=== PATIENT | male | born 1950 | race African-American/Black ===

== ENCOUNTER 2023-08-15 16:24 | Observation (INO) | payer MEDICARE, OTHER ==
[2023-08-15] MEDS ORDERED: ASPIRIN 81 MG PO STA (18:30)
--- NOTE | 2023-08-15 18:39 | ED ---
General Adult HPI - General Chief complaint: Recheck/Abnormal Lab/Rx Stated complaint: Hypertension Time Seen by Provider: 08/15/23 18:13 Source: patient Mode of arrival: ambulatory Limitations: no limitations - History of Present Illness Initial comments: Dictation was produced using [employer] dictation software. please excuse any grammatical, word or spelling errors. Chief Complaint: 73-year-old male presents to the emergency department for hypertension History of Present Illness: Patient 73-year-old male he denies any past medical history. States that [facility] States that there is a staff that comes to the [facility] often just to do checkups on the residents. States that he was being checked out when he was found to have elevated blood pressure. It was suggested him to come to the ER for further care. Patient otherwise feels at baseline. He does not have any chest pain shortness of breath or any other symptoms at this time. She denies any history of cardiac disease. Patient denies ever having had a heart attack. Denies any family history of heart attacks. Patient states that he was seen at a hospital in [place] for rash however he was always discharged. Patient is hungry and wants to eat. The ROS documented in this emergency department record has been reviewed and confirmed by me. Those systems with pertinent positive or negative responses have been documented in the HPI. All other systems are other negative and/or noncontributory. - Related Data Allergies Allergy/AdvReac Type Severity Reaction Status Date / Time aspirin AdvReac Nausea & Verified 08/15/23 18:43 Vomiting Review of Systems ROS Statement: Those systems with pertinent positive or pertinent negative responses have been documented in the HPI. ROS Other: All systems not noted in ROS Statement are negative. Past Medical History Past Medical History: Hypertension Past Surgical History: No Surgical Hx Reported Past Psychological History: No Psychological Hx Reported Smoking Status: Current every day smoker Past Alcohol Use History: Occasional Past Drug Use History: None Reported General Exam - General Exam Comments Initial Comments: PHYSICAL EXAM: General Impression: Alert and oriented x3, not in acute distress HEENT: Normocephalic atraumatic, extra-ocular movements intact, pupils equal and reactive to light bilaterally, mucous membranes moist. Cardiovascular: Heart regular rate and rhythm Chest: Able to complete full sentences, no retractions, no tachypnea Abdomen: abdomen soft, non-tender, non-distended, no organomegaly Musculoskeletal: Pulses present and equal in all extremities, no peripheral edema Motor: no focal deficits noted Neurological: CN II-XII grossly intact, no focal motor or sensory deficits noted Skin: Intact with no visualized rashes Psych: Normal affect and mood Limitations: no limitations Course Vital Signs 08/15/23 08/15/23 08/15/23 16:38 18:39 18:43 Temperature 98.1 F Pulse Rate 63 68 Pulse Rate [ 66 Alterations Manager ] Respiratory 20 18 Rate Blood Pressure 203/108 205/113 O2 Sat by Pulse 97 99 Oximetry - Reevaluation(s) Reevaluation #1: 08/15/23 18:38 Patient seen and evaluated immediately in room 13. EKG was brought to our attention at approximately 6:30 PM. Patient is well-appearing at the bedside with no significant complaints. His EKG is suspicious for ST segment elevation RI however patient does not have any chest symptoms whatsoever. We do not have any old EKGs or [facility] documentation to suggest that this is a baseline EKG for him. Reevaluation #2: 08/15/23 18:50 Case was discussed with cardiology at 6:50 PM. He did review the EKG. Recommen dations were to trend troponins. Likely EKG findings are secondary to left ventricular hypertrophy given that patient does not have any symptoms to support a diagnosis of acute coronary syndrome. EKG Findings - EKG Comments: EKG Findings:: My EKG interpretation: Ventricular rate 71, sinus rhythm,. 127, QRS 90, QTc 439. ST elevations in 1, aVL, anterior precordial leads with reciprocal changes in 3 and aVF. EKG suspicious for ST segment elevation RI Medical Decision Making - Medical Decision Making Was pt. sent in by a medical professional or institution (, PA, WATER TREATMENT TECHNICIAN, urgent care, hospital, or [place] health [place] facility...) When possible be specific @ -Transferred to ER per instruction from [facility] medical staff Did you speak to anyone other than the patient for history (EMS, parent, family, police, friend...)? What history was obtained from this source @ -No Did you review nursing and triage notes (agree or disagree)? Why? @ -I reviewed and agree with nursing and triage notes Were old charts reviewed (outside hosp., previous admission, EMS record, old EKG, old radiological studies, urgent care reports/EKG's, [place] health [place] facility records)? Report findings @ -No old charts were reviewed Differential Diagnosis (chest pain, altered mental status, abdominal pain women, abdominal pain men, vaginal bleeding, musculoskeletal, weakness, fever, dyspnea, syncope, headache, dizziness, GI bleed, back pain, seizure, CVA, palpatations, mental health)? @ -Differential Chest Pain: Stable Angina, Unstable Angina, STEMI, NSTEMI Aortic Dissection, Pneumothorax, M usculoskeletal, Esophageal Spasm GERD, Cholecystitis, Pancreatitis, Zoster, this is not meant to be an all-inclusive list. EKG interpreted by me (3pts min.). @ -See above X-rays interpreted by me (1pt min.). @ -Chest x-ray shows vascular congestion CT interpreted by me (1pt min.). @ -None done U/S interpreted by me (1pt. min.). @ -None done What testing was considered but not performed or refused? (CT, X-rays, U/S, labs)? Why? @ -None What meds were considered but not given or refused? Why? @ -None Did you discuss the management of the patient with other professionals (professionals i.e. , PA, WATER TREATMENT TECHNICIAN, lab, RT, psych nurse, social science analyst, press shop supervisor, teacher, marketing and communications officer, case therapist)? Give summary @ -See above. Case discussed with cardiology. Case discussed with hospitalist for admission Was smoking cessation discussed for >3mins.? @ -No Was critical care preformed (if so, how long)? @ -No Were there social determinants of health that impacted care today? How? (Homelessness, low income, unemployed, alcoholism, drug addiction, transportation, low edu. Level, literacy, decrease access to med. care, custodial, rehab)? @ -Homelessness Was there de-escalation of care discussed even if they declined (Discuss DNR or withdrawal of care, Hospice)? DNR status @ -No What co-morbidities impacted this encounter? (DM, HTN, Smoking, COPD, CAD, Cancer, CVA, ARF, Chemo, Hep., AIDS, mental health diagnosis, sleep apnea, morbid obesity)? @ -None Was patient admitted / discharged? Hospital course, mention meds given and route, prescriptions, significant lab abnormalities, going to OR and other pertinent info. @ -73-year-old male presents to the emergency department for chief complaint of hypertension. Vital signs stable. Patient has no symptoms whatsoever. His EKG is abnormal suspicious for ST segment elevation RI. EKG was evaluated by cardiology. Likely hypertrophic changes due to uncontrolled hypertension. Troponin is 0.019. Rest of labs within acceptable limits. Patient be admitted for cardiac monitoring cardiology consultation. Patient given aspirin. Undiagnosed new problem with uncertain prognosis? @ -No Drug Therapy requiring intensive monitoring for toxicity (Heparin, Nitro, Insulin, Cardizem)? @ -No Were any procedures done? @ -No Diagnosis/symptom? Acute, or Chronic, or Acute on Chronic? Uncomplicated (without systemic symptoms) or Complicated (systemic symptoms)? @ -Abnormal EKG, hypertension Side effects of treatment? @ -No Exacerbation, Progression, or Severe Exacerbation? @ -No Poses a threat to life or bodily function? How? (Chest pain, USA, RI, pneumonia, PE, COPD, DKA, ARF, appy, cholecystitis, CVA, Diverticulitis, Homicidal, Rasmussen icidal, threat to staff... and all critical care pts) @ -yes - Lab Data Result diagrams: 08/15/23 18:36 08/15/23 16:42 Lab Results 08/15/23 08/15/23 08/15/23 Range/Units 16:42 16:42 18:36 WBC (3.8-10.6) k/uL RBC (4.30-5.90) m/uL Hgb (13.0-17.5) gm/dL Hct (39.0-53.0) % MCV (80.0-100.0) fL MCH (25.0-35.0) pg MCHC (31.0-37.0) g/dL RDW (11.5-15.5) % Plt Count (150-450) k/uL MPV Neutrophils % % Lymphocytes % % Monocytes % % Eosinophils % % Basophils % % Neutrophils # (1.3-7.7) k/uL Lymphocytes # (1.0-4.8) k/uL Monocytes # (0-1.0) k/uL Eosinophils # (0-0.7) k/uL Basophils # (0-0.2) k/uL Macrocytosis PT 10.7 (10.0-12.5) sec INR 1.0 (<1.2) APTT 23.4 (22.0-30.0) sec Sodium 135 L (137-145) mmol/L Potassium 5.1 (3.5-5.1) mmol/L Chloride 105 (98-107) mmol/L Carbon Dioxide 24 (22-30) mmol/L Anion Gap 6 mmol/L BUN 19 (9-20) mg/dL Creatinine 0.78 (0.66-1.25) mg/dL Est GFR (CKD-EPI)AfAm >90 (>60 ml/min/1.73 sqM) Est GFR (CKD-EPI)NonAf 89 (>60 ml/min/1.73 sqM) Glucose 308 H (74-99) mg/dL Calcium 8.6 (8.4-10.2) mg/dL Magnesium 2.1 (1.6-2.3) mg/dL Total Bilirubin 0.8 (0.2-1.3) mg/dL AST 57 (17-59) U/L ALT 50 H (4-49) U/L Alkaline Phosphatase 133 H (38-126) U/L Troponin I 0.019 (0.000-0.034) ng/mL Total Protein 7.3 (6.3-8.2) g/dL Albumin 3.6 (3.5-5.0) g/dL 08/15/23 Range/Units 18:36 WBC 5.0 (3.8-10.6) k/uL RBC 4.86 (4.30-5.90) m/uL Hgb 16.6 (13.0-17.5) gm/dL Hct 49.7 (39.0-53.0) % MCV 102.3 H (80.0-100.0) fL MCH 34.1 (25.0-35.0) pg MCHC 33.3 (31.0-37.0) g/dL RDW 12.6 (11.5-15.5) % Plt Count 168 (150-450) k/uL MPV 9.0 Neutrophils % 69 % Lymphocytes % 23 % Monocytes % 5 % Eosinophils % 1 % Basophils % 0 % Neutrophils # 3.4 (1.3-7.7) k/uL Lymphocytes # 1.2 (1.0-4.8) k/uL Monocytes # 0.2 (0-1.0) k/uL Eosinophils # 0.0 (0-0.7) k/uL Basophils # 0.0 (0-0.2) k/uL Macrocytosis Slight PT (10.0-12.5) sec INR (<1.2) APTT (22.0-30.0) sec Sodium (137-145) mmol/L Potassium (3.5-5.1) mmol/L Chloride (98-107) mmol/L Carbon Dioxide (22-30) mmol/L Anion Gap mmol/L BUN (9-20) mg/dL Creatinine (0.66-1.25) mg/dL Est GFR (CKD-EPI)AfAm (>60 ml/min/1.73 sqM) Est GFR (CKD-EPI)NonAf (>60 ml/min/1.73 sqM) Glucose (74-99) mg/dL Calcium (8.4-10.2) mg/dL Magnesium (1.6-2.3) mg/dL Total Bilirubin (0.2-1.3) mg/dL AST (17-59) U/L ALT (4-49) U/L Alkaline Phosphatase (38-126) U/L Troponin I (0.000-0.034) ng/mL Total Protein (6.3-8.2) g/dL Albumin (3.5-5.0) g/dL Disposition Clinical Impression: Hypertension Disposition: ADMITTED IP TO THIS [facility] Condition: Fair Referrals: None,Stated [Primary Care Provider] - 1-2 days Decision Time: 19:35
[2023-08-15 18:52] LABS: Basophils % (A) 0 %; Eosinophils % (A) 1 %; HCT 49.7 % (39.0-53.0); HGB 16.6 gm/dL (13.0-17.5); Lymphocytes # (A) 1.2 k/uL (1.0-4.8); Lymphocytes % (A) 23 %; MCH 34.1 pg (25.0-35.0); MCHC 33.3 g/dL (31.0-37.0); MCV 102.3 fL (80.0-100.0); Macrocytosis Slight; Monocytes # (A) 0.2 k/uL (0-1.0); Monocytes % (A) 5 %; Neutrophils # (A) 3.4 k/uL (1.3-7.7); Neutrophils % (A) 69 %; Platelet Count 168 k/uL (150-450); RBC 4.86 m/uL (4.30-5.90); RDW 12.6 % (11.5-15.5)
[2023-08-15 19:02] LABS: ALT 50 U/L (4-49); AST 57 U/L (17-59); African American GFR (CKD) >90 (>60 ml/min/1.73 sqM); Albumin 3.6 g/dL (3.5-5.0); Alkaline Phosphatase 133 U/L (38-126); Anion Gap 6 mmol/L; Blood Urea Nitrogen 19 mg/dL (9-20); Calcium 8.6 mg/dL (8.4-10.2); Carbon Dioxide 24 mmol/L (22-30); Chloride 105 mmol/L (98-107); Glucose 308 mg/dL (74-99); Magnesium 2.1 mg/dL (1.6-2.3); Non-African American GFR(CKD) 89 (>60 ml/min/1.73 sqM); Sodium 135 mmol/L (137-145); Total Bilirubin 0.8 mg/dL (0.2-1.3); Total Protein 7.3 g/dL (6.3-8.2)
[2023-08-15 19:06] LABS: Partial Thromboplastin Time 23.4 sec (22.0-30.0); Prothrombin Time 10.7 sec (10.0-12.5)
[2023-08-15 19:14] LABS: Potassium 5.1 mmol/L (3.5-5.1)
--- NOTE | 2023-08-15 19:23 | XR ---
EXAM: XR chest 1V portable CLINICAL INDICATION:Male, 73 years old with history of hypertension; [facility] COMPARISON: None. TECHNIQUE: Chest single view. FINDINGS: Lines/tubes/devices: EKG leads over the chest. Cardiomediastinum: Cardiac silhouette appears mildly to moderately enlarged suggesting cardiomegaly. Atherosclerotic calcifications of the aorta with mild tortuosity. Moderately tortuous aorta can be se en with hypertension. Vasculature: Mild central congestion. Lungs/pleura: No consolidation, sizeable effusion, or visible pneumothorax. Bones/soft tissues: Bony thorax appears grossly intact as seen. Regional soft tissues appear unremarkable. Remote healed left-sided rib fracture deformities with residual pleural thickening. IMPRESSION: Enlarged cardiac silhouette with mild pulmonary vascular congestion. Tortuous aorta, can be seen with hypertension.
[2023-08-15] MEDS ORDERED: LABETALOL 5 MG/ML VIAL MDV IVP STA (19:31)
[2023-08-15] MEDS ORDERED: NITROGLYCERIN SL TABS 0.4 MG TAB SUBLINGUAL PRN (19:31)
[2023-08-16] MEDS ORDERED: hydrALAZINE HCL 50 MG TAB PO STA (01:45)
--- NOTE | 2023-08-16 07:40 | P.HPIM ---
History of Present Illness This is a pleasant 73 years old male with past medical history of hypertension. Presents because of high blood pressure. Patient is homeless. [facility] and a volunteer medical team as per patient came to check on him and they found his blood pressure is A high more than 200 so they brought him to the hospital. Patient himself feels fine asymptomatic with no headache dizziness weakness numbness. No chest pain dyspnea. No change in urine or bowel habits. No fever. He smokes half pack per day and he was counseled to quit but he declines. He drinks alcohol 1 double-stranded daily and he quit 3 days ago. No illicit drugs. Vitals stable, blood pressure on admission was 203/108, currently down to 160/82 and he received 1 dose of IV labetalol and 1 dose of hydralazine 50 mg Labs are unremarkable including CBC, INR, BMP, glucose elevated 308 3 troponins are negative EKG showing sinus rhythm at [address]-T changes and QTC 473. Patient has criteria for LVH with mild ST depression in the lateral blades Chest x-ray showing cardiomegaly with mild vascular congestion Review of Systems Review of systems CONSTITUTIONAL: No fever, no malaise, no fatigue. HEENT: No recent visual problems or hearing problems. Denied any sore throat. CARDIOVASCULAR: No orthopnea, PND, no palpitations, no syncope. PULMONARY: No shortness of breath, no cough, no hemoptysis. GASTROINTESTINAL: No diarrhea, no nausea, no vomiting, no abdominal pain. Normoactive bowel sounds. NEUROLOGICAL: No headaches, no weakness, no numbness. HEMATOLOGICAL: Denies any bleeding or petechiae. GENITOURINARY: Denies any burning micturition, frequency, or urgency. MUSCULOSKELETAL/RHEUMATOLOGICAL: Denies any joint pain, swelling, or any muscle pain. ENDOCRINE: Denies any polyuria or polydipsia. Past Medical History Past Medical History: Hypertension Past Surgical History: No Surgical Hx Reported Past Psychological History: No Psychological Hx Reported Smoking Status: Current every day smoker Past Alcohol Use History: Occasional Past Drug Use History: None Reported Medications and Allergies Home Medications Medication Instructions Recorded Confirmed Type No Known Home Medications 08/15/23 08/15/23 History Allergies Allergy/AdvReac Type Severity Reaction Status Date / Time aspirin AdvReac Nausea & Verified 08/15/23 20:08 Vomiting Physical Exam Vitals: Vital Signs Temp Pulse Pulse Resp BP Pulse Ox 08/16/23 06:15 74 16 98 08/16/23 02:12 79 18 160/82 97 08/16/23 00:45 78 13 187/88 98 08/16/23 00:30 80 19 171/101 98 08/16/23 00:15 76 16 156/82 98 08/16/23 00:00 80 18 149/74 99 08/15/23 23:45 79 18 161/53 97 08/15/23 23:30 77 18 172/93 98 08/15/23 23:15 74 16 192/101 99 08/15/23 23:00 80 16 187/123 99 08/15/23 22:45 85 22 184/96 98 08/15/23 22:30 84 16 177/94 99 08/15/23 22:00 78 18 161/93 99 08/15/23 21:30 72 18 172/93 99 08/15/23 21:00 81 20 163/88 99 08/15/23 20:46 73 18 184/104 98 08/15/23 18:43 68 18 205/113 99 08/15/23 18:39 66 08/15/23 16:38 98.1 F 63 20 203/108 97 Intake and Output 08/15/23 08/16/23 08/16/23 22:59 06:59 14:59 Other: Weight 65.317 kg GENERAL: The patient is alert and oriented x3, not in any acute distress. Well developed, well nourished. HEENT: Pupils are round and equally reacting to light. EOMI. No scleral icterus. No conjunctival pallor. Normocephalic, atraumatic. No pharyngeal erythema. No thyromegaly. CARDIOVASCULAR: S1 and S2 present. No murmurs, rubs, or gallops. PULMONARY: Chest is clear to auscultation, no wheezing , no crackles. ABDOMEN: Soft, nontender, nondistended, normoactive bowel sounds. No palpable organomegaly. MUSCULOSKELETAL: No joint swelling or deformity. EXTREMITIES: No cyanosis, clubbing, or pedal edema. NEUROLOGICAL: Gross neurological examination did not reveal any focal deficits. SKIN: No rashes. no petechiae. Results CBC & Chem 7: 08/15/23 18:36 08/15/23 16:42 Labs: Abnormal Lab Results - Last 24 Hours (Table) 08/15/23 08/15/23 Range/Units 16:42 18:36 MCV 102.3 H (80.0-100.0) fL Sodium 135 L (137-145) mmol/L Glucose 308 H (74-99) mg/dL ALT 50 H (4-49) U/L Alkaline Phosphatase 133 H (38-126) U/L Assessment and Plan Assessment: Hypertension with urgency None) chemotherapy Nicotine dependence Recent history of fall, this disorder LVH hypertrophy with reciprocal mild ST changes on EKG Hyperglycemia, check for diabetes mellitus Plan: Start Norvasc 10 mg daily Telemetry Echocardiogram Cardiology consult offal worker consult check hemoglobin A1c Labs and medication were reviewed.. Continue same treatment. Continue with symptomatic treatment. Resume home medication. Monitor labs and vitals. DVT and GI prophylaxis. Further recommendations as per clinical course of the patient DVT prophylaxis: Subcutaneous heparin GI Prophylaxis: Pepcid Prognosis is guarded
[2023-08-16] MEDS: FAMOTIDINE 20 MG/2 ML VIAL IV SCH ×2 (08:59→21:01)
[2023-08-16] MEDS ORDERED: ASPIRIN 325 MG TAB PO SCH (09:00)
[2023-08-16] MEDS: HEPARIN SODIUM,PORCINE 5,000 UNIT/ML 1 ML VIAL SQ SCH ×2 (09:01→21:01)
[2023-08-16] MEDS: amLODIPine 10 MG TAB PO SCH (09:03)
[2023-08-16] MEDS: LOSARTAN 50 MG TAB PO SCH (11:11)
--- NOTE | 2023-08-16 11:39 | P.CRDCN ---
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 Patient is not currently being treated for any medical problems. [facility] is [facility] and blood pressure was checked was high and patient was sent into the emergency center for further evaluation. On presentation, blood pressure was 203/108. Now blood pressure is 160/82. Heart rate is in the 70s. Patient denies having any chest pain. We have been asked to evaluate the patient for abnormal EKG. Patient is a smoker of a half a pack of cigarettes per day and has been smoking since 14 years of age. He denies alcohol use. EKG sinus rhythm with T wave inversions and a left ventricular hypertrophy Chest x-ray: Enlarged cardiac silhouette with mild pulmonary vascular congestion. Tortuous aorta may be seen with hypertension. CBC is unremarkable. INR 1. Sodium 135 otherwise electrolytes and renal function are normal. Glucose 308. ALT 50, alkaline phosphatase 133. Troponin negative x 3. Magnesium 2.1 Home cardiac medications: None Review Of Systems: At the time of my evaluation: Constitutional: No fever, no chills. No weakness, fatigue or lethargy. EENT: No headache. No dizziness. Lungs: No shortness of breath, cough, no sputum production. No wheezing. Cardiovascular: No chest pain, no lower extremity edema. No palpitations. No paroxysmal nocturnal dyspnea. No orthopnea. No lightheadedness or dizziness. No syncopal episodes. Abdominal: No abdominal pain. No nausea, vomiting. No diarrhea. No constipation. No bloody or tarry stools. Musculoskeletal: No myalgias. No muscle weakness, no frequent falls. Integumentary: No wounds. No rash. No unusual bruising. Neurologic: No aphasia. No facial droop. No change in mentation. Physical examination: Gen: This is a 73-year-old black male in no acute distress VS: reviewed HEENT: Head is atraumatic, normocephalic. Pupils equal, round. Sclerae is anicteric. NECK: Supple. No JVD. LUNGS: Clear to auscultation. No wheezes or rhonchi. No intercostal retractions. HEART: Regular rate and rhythm. ABDOMEN: Soft No tenderness. EXTREMITIES: No pedal edema. No calf tenderness. NEUROLOGICAL: Patient is awake, alert and oriented x3. Assessment: Hypertension Abnormal EKG of no clear significance Tobacco use dependence Plan: Continue patient on amlodipine 10 mg daily and losartan 50 mg daily Obtain 2-D echocardiogram and Doppler study to assess cardiac structure and function Patient is cleared for cardiology for discharge May follow-up in the office in 2 weeks. Thank you kindly for this consultation. Nurse practitioner note has been reviewed, I agree with documented findings and plan of care. Patient was seen and examined. Past Medical History Past Medical History: Hypertension Past Surgical History: No Surgical Hx Reported Past Psychological History: No Psychological Hx Reported Smoking Status: Current every day smoker Past Alcohol Use History: Occasional Past Drug Use History: None Reported Medications and Allergies Home Medications Medication Instructions Recorded Confirmed Type No Known Home Medications 08/15/23 08/15/23 History Allergies Allergy/AdvReac Type Severity Reaction Status Date / Time aspirin AdvReac Nausea & Verified 08/15/23 20:08 Vomiting Physical Exam Vitals: Vital Signs Temp Pulse Pulse Resp BP Pulse Ox 08/16/23 07:54 86 20 153/92 100 08/16/23 06:15 74 16 98 08/16/23 02:12 79 18 160/82 97 08/16/23 00:45 78 13 187/88 98 08/16/23 00:30 80 19 171/101 98 08/16/23 00:15 76 16 156/82 98 08/16/23 00:00 80 18 149/74 99 08/15/23 23:45 79 18 161/53 97 08/15/23 23:30 77 18 172/93 98 08/15/23 23:15 74 16 192/101 99 08/15/23 23:00 80 16 187/123 99 08/15/23 22:45 85 22 184/96 98 08/15/23 22:30 84 16 177/94 99 08/15/23 22:00 78 18 161/93 99 08/15/23 21:30 72 18 172/93 99 08/15/23 21:00 81 20 163/88 99 08/15/23 20:46 73 18 184/104 98 08/15/23 18:43 68 18 205/113 99 08/15/23 18:39 66 08/15/23 16:38 98.1 F 63 20 203/108 97 Intake and Output 08/15/23 08/16/23 08/16/23 22:59 06:59 14:59 Other: Weight 65.317 kg Results 08/15/23 18:36 08/15/23 16:42 Cardiac Enzymes 08/15/23 08/15/23 08/15/23 Range/Units 16:42 16:42 22:18 AST 57 (17-59) U/L Troponin I 0.019 0.012 (0.000-0.034) ng/mL 08/16/23 Range/Units 01:21 AST (17-59) U/L Troponin I 0.016 (0.000-0.034) ng/mL Coagulation 08/15/23 Range/Units 18:36 PT 10.7 (10.0-12.5) sec APTT 23.4 (22.0-30.0) sec CBC 08/15/23 Range/Units 18:36 WBC 5.0 (3.8-10.6) k/uL RBC 4.86 (4.30-5.90) m/uL Hgb 16.6 (13.0-17.5) gm/dL Hct 49.7 (39.0-53.0) % Plt Count 168 (150-450) k/uL Comprehensive Metabolic Panel 08/15/23 Range/Units 16:42 Sodium 135 L (137-145) mmol/L Potassium 5.1 (3.5-5.1) mmol/L Chloride 105 (98-107) mmol/L Carbon Dioxide 24 (22-30) mmol/L BUN 19 (9-20) mg/dL Creatinine 0.78 (0.66-1.25) mg/dL Glucose 308 H (74-99) mg/dL Calcium 8.6 (8.4-10.2) mg/dL AST 57 (17-59) U/L ALT 50 H (4-49) U/L Alkaline Phosphatase 133 H (38-126) U/L Total Protein 7.3 (6.3-8.2) g/dL Albumin 3.6 (3.5-5.0) g/dL Current Medications Generic Name Dose Route Start Last Admin Trade Name Freq PRN Reason Stop Dose Admin Amlodipine Besylate 10 mg 08/16/23 09:00 Amlodipine 10 Mg Tab PO DAILY [place] Aspirin 325 mg 08/16/23 09:00 Aspirin 325 Mg Tab PO DAILY [facility] Famotidine 20 mg 08/16/23 09:00 Famotidine 20 Mg/2 Ml Vial IV Q12HR [facility] Heparin Sodium (Porcine) 5,000 unit 08/16/23 09:00 Heparin Sodium,Porcine 5,000 Unit/Ml 1 Ml Vial SQ Q12HR [facility] Nitroglycerin 0.4 mg 08/15/23 19:31 Nitroglycerin Sl Tabs 0.4 Mg Tab SUBLINGUAL Q5M PRN Chest Pain Intake and Output 08/15/23 08/16/23 08/16/23 22:59 06:59 14:59 Other: Weight 65.317 kg 08/15/23 18:36 08/15/23 16:42
--- NOTE | 2023-08-16 12:26 | CA ---
Transthoracic Echo Report Name: Esdras Jain Age: 73 Gender: M : 1950 Exam Date: 08/16/2023 09:17 Exam Location: [facility] Ht (in): 67 Wt (lb): 144 Ordering Physician: Rupesh Mathew MD Attending/Referring Phys: [id number], [place] [employer] Technician Mervin Burrell RDCS Procedure CPT: Indications: Rule out heart disease Cardiac Hx: Technical Quality: Fair Contrast 1: Total Dose (mL): Contrast 2: Total Dose (mL): MEASUREMENTS (Male / Female) Normal Values 2D ECHO LV Diastolic Diameter PLAX 3.6 cm 4.2 - 5.9 / 3.9 - 5.3 cm LV Systolic Diameter PLAX 2.6 cm IVS Diastolic Thickness 1.4 cm 0.6 - 1.0 / 0.6 - 0.9 cm LVPW Diastolic Thickness 1.4 cm 0.6 - 1.0 / 0.6 - 0.9 cm LV Relative Wall Thickness 0.8 RV Internal Dim ED PLAX 2.9 cm LVOT Diameter 1.9 cm Aortic Root Diameter 2.4 cm LA Systolic Diameter LX 3.3 cm 3.0 - 4.0 / 2.7 - 3.8 cm LV Diastolic Volume MOD BP 42.5 cm??? 67 - 155 / 56 - 104 cm??? LV Systolic Volume MOD BP 17.1 cm??? - 58 / 19 - 49 cm??? LV Ejection Fraction MOD BP 59.7 % >= 55 % LV Cardiac Index MOD BP 1052.5 cm???/min???m??? LV Diastolic Volume MOD 4C 43.2 cm??? LV Systolic Volume MOD 4C 21.3 cm??? LV Ejection Fraction MOD 4C 50.8 % LV Cardiac Index MOD 4C 909.2 cm???/min???m??? LV Diastolic Length 4C 7.0 cm LV Systolic Length 4C 5.7 cm LV Diastolic Volume MOD 2C 42.0 cm??? LV Systolic Volume MOD 2C 13.4 cm??? LV Ejection Fraction MOD 2C 68.1 % LV Cardiac Index MOD 2C 1187.2 cm???/min???m??? LV Diastolic Length 2C 7.0 cm LV Systolic Length 2C 6.0 cm LA Volume 46.9 cm??? 18 - 58 / 22 - 52 cm??? LA Volume Index 26.7 cm???/m??? 16 - 28 cm???/m??? Ascending Aorta Diameter 2.7 cm DOPPLER AV Peak Velocity 145.6 cm/s AV Peak Gradient 8.5 mmHg LVOT Peak Velocity 86.2 cm/s LVOT Peak Gradient 3.0 mmHg LVOT Velocity Time Integral 19.5 cm LVOT Stroke Volume 54.5 cm??? LVOT Stroke Volume Index 31.0 ml/m??? LVOT Cardiac Index 2260.5 cm???/min???m??? AV Area Cont Eq pk 1.7 cm??? MV Peak Velocity 106.9 cm/s MV Peak Gradient 4.6 mmHg MV Mean Velocity 60.1 cm/s MV Mean Gradient 1.7 mmHg MV Velocity Time Integral 38.7 cm MR Peak Velocity 506.3 cm/s MR Peak Gradient 102.5 mmHg Mitral E Point Velocity 85.3 cm/s Mitral A Point Velocity 94.5 cm/s Mitral E to A Ratio 0.9 MV Deceleration Time 195.2 ms TR Peak Velocity 196.7 cm/s TR Peak Gradient 15.5 mmHg Right Ventricular Systolic Press 20.5 mmHg PV Peak Velocity 93.9 cm/s PV Peak Gradient 3.5 mmHg FINDINGS Left Ventricle Normal LV size. Moderate concentric LVH. Left ventricular ejection fraction is estimated at 55-60 %. No obvious regional wall motion abnormalities. Right Ventricle Normal right ventricular size. RVSP= 20mmHg Right Atrium Normal right atrial size. Left Atrium Mild left atrial dilatation. LA volume index= 27ml/m2 Mitral Valve Structurally normal mitral valve. Mild MR. Aortic Valve Aortic valve not well visualized. At least mild calcification. No aortic stenosis. No aortic regurgitation. Tricuspid Valve Structurally normal tricuspid valve. Milld TR. Pulmonic Valve Pulmonic valve not well visualized. Mild to moderate PI. Pericardium Normal pericardium. Aorta Normal size aortic root and proximal ascending aorta. CONCLUSIONS Normal LV size. Moderate concentric LVH. Left ventricular ejection fraction is estimated at 55-60 %. No obvious regional wall motion abnormalities. Mild MR. Mild left atrial dilatation. Previewed by: Dr Jag Sharpe (Electronically Signed) Final Date: 16 August 2023 12:25
[2023-08-16 13:31] LABS: Chol/HDL Ratio 2.27 Ratio; LDL Cholesterol,Calculated 92.7 mg/dL (0.0-131.0)
[2023-08-16 20:09] LABS: Glucose,Whole Blood 211 mg/dL (70-110)
[2023-08-16] MEDS ORDERED: LOSARTAN 50 MG TAB PO STA (20:50)
[2023-08-16] MEDS: INSULIN ASPART (NovoLOG) 100 UNIT/ML VIAL SQ SCH (21:01)
[2023-08-17 05:42] VITALS: RESP 18
[2023-08-17 05:54] LABS: Glucose,Whole Blood 137 mg/dL (70-110)
[2023-08-17] MEDS: INSULIN ASPART (NovoLOG) 100 UNIT/ML VIAL SQ SCH ×3 (05:55→16:20)
[2023-08-17] MEDS ORDERED: ASPIRIN 81 MG PO SCH (09:00)
[2023-08-17] MEDS: amLODIPine 10 MG TAB PO SCH (09:11)
[2023-08-17] MEDS: LOSARTAN 50 MG TAB PO SCH (09:11)
[2023-08-17] MEDS: HEPARIN SODIUM,PORCINE 5,000 UNIT/ML 1 ML VIAL SQ SCH (09:11)
[2023-08-17] MEDS: FAMOTIDINE 20 MG/2 ML VIAL IV SCH (09:11)
[2023-08-17] MEDS ORDERED: metFORMIN 500 MG TAB PO SCH (10:15)
[2023-08-17 11:44] LABS: Glucose,Whole Blood 200 mg/dL (70-110)
--- NOTE | 2023-08-17 11:54 | P.PN ---
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 Patient is not currently being treated for any medical problems. He is living in a homeless longterm and blood pressure was checked was high and patient was sent into the emergency center for further evaluation. On presentation, blood pressure was 203/108. Now blood pressure is 160/82. Heart rate is in the 70s. Patient denies having any chest pain. We have been asked to evaluate the patient for abnormal EKG. Patient is a smoker of a half a pack of cigarettes per day and has been smoking since 14 years of age. He denies alcohol use. EKG sinus rhythm with T wave inversions and a left ventricular hypertrophy Chest x-ray: Enlarged cardiac silhouette with mild pulmonary vascular congestion. Tortuous aorta may be seen with hypertension. CBC is unremarkable. INR 1. Sodium 135 otherwise electrolytes and renal function are normal. Glucose 308. ALT 50, alkaline phosphatase 133. Troponin negative x 3. Magnesium 2.1 Home cardiac medications: None 08/17 Patient is seen in follow-up today on the cardiac stepdown unit. Blood pressure readings this morning have been running between 132 systolic to 176 systolic. Heart rate is in the 70s. Echocardiogram reveals EF of 55 to 60%, no obvious regional wall motion abnormalities. Mild MR. Physical examination: Gen: This is a 73-year-old black male in no acute distress VS: reviewed HEENT: Head is atraumatic, normocephalic. Pupils equal, round. Sclerae is anicteric. NECK: Supple. No JVD. LUNGS: Clear to auscultation. No wheezes or rhonchi. No intercostal retractions. HEART: Regular rate and rhythm. ABDOMEN: Soft No tenderness. EXTREMITIES: No pedal edema. No calf tenderness. NEUROLOGICAL: Patient is awake, alert and oriented x3. Assessment: Hypertension Abnormal EKG of no clear significance tobacco tomorrow Tobacco use dependence Diabetes mellitus type 2 Plan: Continue patient on amlodipine 10 mg daily and losartan 50 mg daily May consider increasing losartan if potassium level is within normal limits. Patient is cleared for cardiology for discharge and may follow-up in the office in 2 weeks. Cardiology will sign off this case and follow on an as-needed basis. Please reconsult for any new concerns. Patient may follow-up in the office in one to 2 weeks. Nurse practitioner note has been reviewed, I agree with documented findings and plan of care. Patient was seen and examined. Objective - Vital Signs Vital signs: Vital Signs Temp 98.9 F 08/17/23 09:09 Pulse 74 08/17/23 09:10 Resp 18 08/17/23 09:10 BP 176/80 08/17/23 09:09 Pulse Ox 98 08/17/23 09:09 FiO2 Intake & Output 08/16/23 08/17/23 08/17/23 18:59 06:59 18:59 Intake Total 358 Output Total 450 Balance -450 358 Weight 65.317 kg Intake: Oral 358 Output: Urine 450 Other: Voiding Method Urinal Urinal # Voids 1 - Labs CBC & Chem 7: 08/15/23 18:36 08/15/23 16:42 Labs: Abnormal Lab Results - Last 24 Hours (Table) 08/16/23 08/16/23 08/16/23 Range/Units 07:47 07:47 20:08 POC Glucose (mg/dL) 211 H (70-110) mg/dL Hemoglobin A1c 7.2 H (<=6.0) % Cholesterol 211.00 H (0.00-200.00) mg/dL HDL Cholesterol 93.10 H (40.00-60.00) mg/dL 08/17/23 Range/Units 05:52 POC Glucose (mg/dL) 137 H (70-110) mg/dL Hemoglobin A1c (<=6.0) % Cholesterol (0.00-200.00) mg/dL HDL Cholesterol (40.00-60.00) mg/dL
[2023-08-17 16:15] VITALS: BP 137/71; PULSE 77; TEMP 98.1
[2023-08-17 16:18] LABS: Glucose,Whole Blood 117 mg/dL (70-110)
== END 2023-08-17 16:58 | disposition home or self-care (01) ==
LOC: EC 16:24 → INTOOBSV 19:33 → 3SCARD 19:33
PROVIDERS: ADMIT Hospitalist; ATTEND Hospitalist
DX: I11.9 Hypertensive heart disease without heart failure (principal); R94.31 Abnormal electrocardiogram [ECG] [EKG]; I16.0 Hypertensive urgency; E11.65 Type 2 diabetes mellitus with hyperglycemia; R09.89 Other specified symptoms and signs involving the circulatory and respiratory systems; F17.210 Nicotine dependence, cigarettes, uncomplicated; Z88.6 Allergy status to analgesic agent; Z71.6 Tobacco abuse counseling; Z91.81 History of falling; Z59.01 Sheltered homelessness
CPT/HCPCS: 96376 ×2; 96372 ×3; 96374; 96375; 99284; 36415; 93005; 93306; 80061; 80053; 83735; 84484 ×2; 85025; 85610; 85730; 83036; 71045; G0378 ×2; J1644 ×2; J3490 ×2; J1920